=== PATIENT | female | born 1965 | race Two or more races ===

== ENCOUNTER → 2017-11-03 | Outpatient (CLI) | payer OTHER | LOC: BRMIMAGING 13:57 | DX: Z12.31 Encounter for screening mammogram for malignant neoplasm of breast (principal) ==

== ENCOUNTER → 2018-11-06 | Outpatient (CLI) | payer OTHER | LOC: BRMIMAGING 14:59 | DX: Z12.31 Encounter for screening mammogram for malignant neoplasm of breast (principal) ==